=== PATIENT | female | born 1990 | race Caucasian/White ===

== ENCOUNTER 2016-06-25 00:47 | Inpatient (IN) | payer OTHER ==
[~2016-06-25] VITALS: Ht 162.6 cm; Wt 85.3 kg
[2016-06-25 01:39] LABS: microscopic required? NO
[2016-06-25 01:40] LABS: BASOPHIL % 0.2 % (0-2); RED CELL DISTRIBUTION WIDTH 13.1 % (11.5-14.5)
[2016-06-25 01:44] LABS: PLATELET COUNT 435 x10^3mcL (130-400)
[2016-06-25 02:04] LABS: AMPHETAMINE QUAL UR POSITIVE (NEG <=1000)
[2016-06-25 02:12] LABS: UA SPECIFIC GRAVITY 1.015 (1.005-1.035)
[2016-06-25 02:13] LABS: urine erythrocyte NEGATIVE (NEGATIVE)
[2016-06-25 02:19] LABS: CALCIUM 8.7 mg/dL (8.5-10.1); CARBON DIOXIDE 29.4 mmol/L (21-32); CHLORIDE SERUM 103 mmol/L (98-107); CREATININE SERUM 0.9 mg/dL (0.6-1.0); GFR1 > 60 mL/min; GLUCOSE SERUM 77 mg/dL (74-106); POTASSIUM SERUM 3.4 mmol/L (3.5-5.1); SODIUM SERUM 141 mmol/L (136-145)
[2016-06-25 02:24] LABS: ALBUMIN 4.1 g/dL (3.4-5.0); ALKALINE PHOSPHATASE 85 U/L (46-116); ALT/SGPT 31 U/L (14-59); AST/SGOT 29 U/L (15-37); BILIRUBIN TOTAL 0.26 mg/dL (0.20-1.00)
[2016-06-25 07:14] LABS: CHOLESTEROL/HDL RATIO 1.7
[2016-06-25 07:18] LABS: T3 TOTAL 0.84 ng/mL
[2016-06-25 07:20] LABS: FREE T4 0.66 ng/dL (0.76-1.46); FREE THYROXINE INDEX 2.3 ug/dL (1.4-4.5); T4(THYROXINE) 6.8 ug/dL (4.7-13.3)
[2016-06-25 08:43] VITALS: BP 110/69
[2016-06-25 09:17] VITALS: Ht 162.6 cm; Wt 85.3 kg
[2016-06-25 12:00] VITALS: BP 115/72
[2016-06-25 17:15] VITALS: BP 113/74
[2016-06-25 20:40] VITALS: BP 111/67
[2016-06-26 05:41] VITALS: BP 103/66
[2016-06-26 06:06] LABS: BASOPHIL % 0.4 % (0-2); PLATELET COUNT 316 x10^3mcL (130-400); RED CELL DISTRIBUTION WIDTH 13.3 % (11.5-14.5)
[2016-06-26 06:43] LABS: CALCIUM 7.6 mg/dL (8.5-10.1); CARBON DIOXIDE 24.6 mmol/L (21-32); CHLORIDE SERUM 106 mmol/L (98-107); CREATININE SERUM 0.8 mg/dL (0.6-1.0); GFR1 > 60 mL/min; GLUCOSE SERUM 131 mg/dL (74-106); MAGNESIUM 1.9 mg/dL (1.8-2.4); PHOSPHOROUS 4.6 mg/dL (2.5-4.9); POTASSIUM SERUM 3.7 mmol/L (3.5-5.1); SODIUM SERUM 143 mmol/L (136-145)
[2016-06-26 09:30] VITALS: BP 117/70
[2016-06-26 17:47] VITALS: BP 113/71
[2016-06-26 21:38] VITALS: BP 105/69
[2016-06-27 05:52] VITALS: BP 98/60
[2016-06-27 06:27] LABS: BASOPHIL % 0.4 % (0-2); PLATELET COUNT 320 x10^3mcL (130-400)
[2016-06-27 06:28] LABS: ALBUMIN 3.1 g/dL (3.4-5.0); CALCIUM 8.1 mg/dL (8.5-10.1); CHLORIDE SERUM 106 mmol/L (98-107); CREATININE SERUM 0.6 mg/dL (0.6-1.0); GFR1 > 60 mL/min; GLUCOSE SERUM 83 mg/dL (74-106); MAGNESIUM 1.9 mg/dL (1.8-2.4); PHOSPHOROUS 4.9 mg/dL (2.5-4.9); POTASSIUM SERUM 3.8 mmol/L (3.5-5.1); SODIUM SERUM 142 mmol/L (136-145)
[2016-06-27 10:02] VITALS: BP 103/54
[2016-06-27 14:32] VITALS: BP 103/54
== END 2016-06-27 15:20 | disposition home or self-care (01) | DRG 917 ==
LOC: ED 00:47 → DU 05:30 → IC 05:30 → DU 17:10 → MU 06-26 18:00
PROVIDERS: Emergency Medicine; ADMIT Family Medicine
DX: T48.3X2A Poisoning by antitussives, intentional self-harm, initial encounter (principal); G92 Toxic encephalopathy; I42.9 Cardiomyopathy, unspecified; F25.0 Schizoaffective disorder, bipolar type; T45.0X2A Poisoning by antiallergic and antiemetic drugs, intentional self-harm, initial encounter; F10.129 Alcohol abuse with intoxication, unspecified; E02 Subclinical iodine-deficiency hypothyroidism; F15.129 Other stimulant abuse with intoxication, unspecified; Z68.32 Body mass index [BMI] 32.0-32.9, adult; Z59.0 Homelessness; Y90.6 Blood alcohol level of 120-199 mg/100 ml; Y92.89 Other specified places as the place of occurrence of the external cause
CPT/HCPCS: 80307; 83880; 84439; G0480; J1200; J2060; J7030; Q0092; Q0163